=== PATIENT | male | born 1985 | race Caucasian/White ===

== ENCOUNTER 2024-10-28 14:34 | Outpatient (CLI) | payer MEDICARE, MEDICAID, SELFPAY ==
[2024-10-28 16:56] LABS: Absolute Lymphocyte Count 1.81 X10^3/uL (0.83-4.51); Absolute Neutrophil Count 1.9 X10^3/uL (2.0-7.7); Basophil# 0.05 X10^3/uL; Basophil% 1.1 % (0-1); Eosinophil# 0.14 X10^3/uL; Eosinophils% 3.1 % (0-5); Hematocrit 42.1 % (40-54); Hemoglobin 14.2 g/dL (13.0-16.5); Lymphocyte # 1.81 X10^3/ul (0.83-4.51); Lymphocyte % 39.5 % (19-41); Mean Corp Hgb Conc 33.7 g/dL (32-36); Mean Corpuscular Hgb 30.3 pg (27.0-32.0); Mean Platelet Vol. 12.8 fl (6.2-12.0); Monocyte# 0.64 X10^3/uL; NRBC Flagged by Analyzer 0 % (0-5); Neutrophil # 1.93 X10^3/uL (2.7-7.7); Neutrophil % 42.1 % (47-70); Platelet Count 260 K/mm3 (150-450); RBC Distribution Width CV 11.7 % (11.6-14.6); RBC Distribution Width SD 38.3 fl (35.1-43.9); Red Blood Count 4.68 M/mm3 (4.6-6.2); White Blood Count 4.6 K/mm3 (4.4-11.0)
== END 2024-10-28 23:59 | disposition home or self-care (01) ==
PROVIDERS: PCP Family Medicine; Referring Provider Internal Medicine; Visit Provider Internal Medicine
DX: F41.9 Anxiety disorder, unspecified (principal); F84.0 Autistic disorder
CPT/HCPCS: 85025

== ENCOUNTER 2024-12-13 14:36 | Emergency (ER) | payer MEDICARE, MEDICAID, SELFPAY ==
[2024-12-13 14:38] VITALS: BP 178/150; PULSE 113; RESP 18; TEMP 39.4; O2SAT 92
[2024-12-13 14:41] VITALS: BP 178/150; PULSE 113; RESP 19; TEMP 39.4; O2SAT 92
--- NOTE | 2024-12-13 14:51 | EX.ED.DYSGE1 ---
HPI History of Present Illness Chief Complaint: Fever Informant: mental health staff Narrative Narrative: 39-year-old male from longterm presenting to the emergency room with persistent fever. It has been reported to me based on the paperwork that accompanies him that he tested positive for influenza A on 03 December of this year. Reportedly has had persistent fever. It was noted that he has continued cough. He was taken to urgent care. Was noted that he had a pulse ox between 92 to 93%. Fever of up to 105 has been reported to me. They do not have report that is received any Tylenol or Motrin today. I reviewed his medications on the paperwork that accompanies him and see that he is on valproic acid. Caregiver that is with him states that she was told he has not had vomiting or diarrhea that he has been eating and drinking. PFSH PFSH Medical History no medical history Home Medications ?Medication ?Instructions ?Recorded ?Last Taken ?Type acetaminophen 500 mg capsule 1,000 mg (2 x 500 mg) PO Q6H PRN 12/13/24 Unknown Rx fever #20 caps amoxicillin 875 mg-potassium 875 mg PO Q12H #20 TABLETS 12/13/24 Unknown Rx clavulanate 125 mg tablet Allergy/AdvReac Type Severity Reaction Status Date / Time No Known Allergies Allergy Verified 12/13/24 14:37 Family History no significant family his Surgical History no surgical history Social History Smoking Status: Never smoker ROS ROS ED Review of Systems ROS Unobtainable: other Details: Limited due to patient's ability to communicate and lack of staff knowledge Constitutional Constitutional ED: Reports fever(s) Respiratory/Chest Respiratory/Chest: Reports cough Gastrointestinal Gastrointestinal: Denies diarrhea, nausea or vomiting EXAM Physical Exam Narrative Exam Narrative: 39-year-old male sitting comfortably in the bed. He has headphones on. He does participate in the exam. Const Vital Signs: 12/13/24 14:38 12/13/24 14:41 12/13/24 15:20 Temperature 103 F H 103 F H Temperature Source Oral Oral Pulse Rate 113 H 113 H Respiratory Rate 18 19 H Respiratory Effort Normal Non-Labored Respiratory Pattern Normal Blood Pressure 178/150 H 178/150 H Blood Pressure Mean 159 159 Pulse Ox 92 92 Oxygen Delivery Method Room Air Room Air 12/13/24 15:41 12/13/24 16:00 12/13/24 16:36 Temperature 98.9 F 98.9 F Temperature Source Oral Oral Pulse Rate 99 96 96 Respiratory Rate 18 18 Respiratory Effort Respiratory Pattern Blood Pressure 122/57 H 105/39 L 105/39 L Blood Pressure Mean 78 61 61 Pulse Ox 99 99 Oxygen Delivery Method Room Air Room Air 12/13/24 16:58 Temperature 98 F Temperature Source Pulse Rate 89 Respiratory Rate 16 Respiratory Effort Respiratory Pattern Blood Pressure 105/98 H Blood Pressure Mean 100 Pulse Ox 99 Oxygen Delivery Method Positive well nourished and well developed General Appearance ED: well developed HEENT Reports normocephalic, head/scalp atraumatic, TM's clear and moist mucous membranes HEENT Narrative: I do not appreciate any oropharyngeal erythema. Tympanic membranes appear normal. Tympanic Membrane ED: Yes TM's clear Eyes PERRL and EOMs intact bilaterally Neck no lymphadenopathy, supple and no JVD Resp normal respiratory effort and clear to auscultation bilaterally Resp Narrative: Moist rhonchorous cough Cardio regular rate, regular rhythm and no murmurs Rate: tachycardic GI normal to inspection, nondistended, normoactive bowel sounds and non-tender Palpation: soft Back/Spine no CVA tenderness and normal ROM Extremity normal to inspection General Extremety ED: Negative for edema General Extremity: Negative for edema Neuro CN's II-XII intact bilaterally Sensorium / Orientation: alert Motor Exam: strength 5/5 throughout Psych Attitude: No agitated Mood & Affect: Negative for tearful Skin no rashes or lesions noted and no wounds MDM MDM MDM Narrative Medical decision making narrative: Differential diagnosis includes but not limited to pneumonia bronchitis pleural effusion pneumothorax sepsis dehydration electrolyte abnormalities acute kidney injury Basic blood work was obtained shows white count 16.4 hemoglobin 12.7 platelet count of 337. Sodium is 131 glucose of 107 lactic acid is normal at 1.8 normal LFTs valproic acid is 81. My independent interpretation have a chest x-ray 2 view is retrocardiac infiltrate seen best on the lateral view posteriorly. Patient clinically appears well. After a gram of Tylenol and some IV fluids (patient dislodged his IV while in radiology) patient is now afebrile heart rate is now 96 respirations are easy nonlabored at 18 and his pulse ox is 99. Believe the patient can be discharged home. Melia start him on his [place]. I will also write for Tylenol so he can have fever control. Continued oral hydration and to follow-up with PCP 3 to 5 days. History & Record Review Discussion w/independent historian: Patient Lab Data Attestation: I reviewed the patient's lab results. Labs: Laboratory Results - last 24 hr 12/13/24 15:10 WBC 16.4 H RBC 4.18 L Hgb 12.7 L Hct 36.1 L MCV 86.4 MCH 30.4 MCHC 35.2 RDW Std Deviation 37.2 RDW Coeff of Kadi 11.8 Plt Count 337 MPV 10.5 Immature Gran % (Auto) 0.500 Neut % (Auto) 77.0 H Lymph % (Auto) 4.8 L Coryell % (Auto) 17.5 H Eos % (Auto) 0.0 Baso % (Auto) 0.2 Absolute Neuts (auto) 12.6 H Absolute Lymphs (auto) 0.79 L Nucleated RBC % 0 Differential Comment SEE COMMENT Diff Path Review May foll Platelet Estimate A RBC Morphology NORM C+C Anisocytosis RARE Macrocytosis RARE Ovalocytes RARE Sodium 131 L Potassium 4.5 Chloride 98 Carbon Dioxide 20.8 L Anion Gap 12 BUN 10 Creatinine 0.91 Estim Creat Clear Calc 118.23 Est GFR (MDRD) Non-Af 111 BUN/Creatinine Ratio 10.5 Glucose 107 H Lactic Acid 1.8 Calcium 9.7 Total Bilirubin 0.61 Direct Bilirubin 0.13 AST 21 ALT 8 Alkaline Phosphatase 70 Total Protein 7.2 Albumin 3.6 Globulin 3.6 Valproic Acid 81 Radiography Diagnostic Testing: Clinical Impression(s) from Imaging Studies Chest X-Ray 12/13/24 15:30 IMPRESSION: NEGATIVE CHEST Reading Location: [facility] Discharge Plan Triage Chief Complaint: Fever ED Provider: Dayton Salinas Dx/Rx/DC Orders Clinical Impression: Pneumonia, Hyponatremia, Fever Instructions: ED Pneumonia (Adult) Prescriptions: New amoxicillin-pot clavulanate 875-125 mg tablet 875 mg PO Q12H Qty: 20 0RF acetaminophen 500 mg capsule 1,000 mg PO Q6H PRN (Reason: fever) Qty: 20 0RF Primary Care Provider: Julius Sanches Referrals: Jose Avila MD [Non-Staff] - 3-5 Days Print Language: Citizen Of [place] Disposition Disposition: Home, Self Care Discharge Date/Time: 12/13/24 16:59
[2024-12-13] MEDS: 0.9% Normal Saline (1000mL) 1,000 ML 1000 ML IV (15:16)
[2024-12-13] MEDS: Acetaminophen 500 MG Tablet 1000 MG PO (15:16)
[2024-12-13 15:19] VITALS: BMI 22.9
[2024-12-13 15:19] LABS: Absolute Lymphocyte Count 0.79 X10^3/uL (0.83-4.51); Absolute Neutrophil Count 12.6 X10^3/uL (2.0-7.7); Basophil# 0.04 X10^3/uL; Basophil% 0.2 % (0-1); Hematocrit 36.1 % (40-54); Hemoglobin 12.7 g/dL (13.0-16.5); Lymphocyte # 0.79 X10^3/ul (0.83-4.51); Lymphocyte % 4.8 % (19-41); Mean Corp Hgb Conc 35.2 g/dL (32-36); Mean Corpuscular Hgb 30.4 pg (27.0-32.0); Mean Corpuscular Volume 86.4 fL (80-94); Mean Platelet Vol. 10.5 fl (6.2-12.0); Monocyte# 2.88 X10^3/uL; Monocyte% 17.5 % (0-10); NRBC Flagged by Analyzer 0 % (0-5); Neutrophil # 12.64 X10^3/uL (2.7-7.7); POSITIVE DIFFERENTIAL YES; Platelet Count 337 K/mm3 (150-450); RBC Distribution Width CV 11.8 % (11.6-14.6); RBC Distribution Width SD 37.2 fl (35.1-43.9); Red Blood Count 4.18 M/mm3 (4.6-6.2); White Blood Count 16.4 K/mm3 (4.4-11.0)
--- NOTE | 2024-12-13 15:30 | RAD_ITS ---
PROCEDURE: CHEST PA AND LATERAL 12/13/2024 REASON FOR EXAM: COUGH TECHNIQUE: Frontal and lateral views of the chest. COMPARISON: None. FINDINGS: Hardware: None. Heart: The heart size is normal. Mediastinum: The mediastinal contour is unremarkable. Lungs: No focal consolidation, pleural effusion or pneumothorax. Bones: The bones are unremarkable. RAD/Chest PA and Lateral IMPRESSION: NEGATIVE CHEST Reading Location: [id number]
[2024-12-13 15:41] VITALS: BP 122/57; PULSE 99; RESP 18; TEMP 37.2; O2SAT 99
[2024-12-13 15:47] LABS: Lactic Acid 1.8 mmol/L (0.0-2.0)
[2024-12-13 16:00] VITALS: BP 105/39; PULSE 96; RESP 18; TEMP 37.2; O2SAT 99
[2024-12-13 16:14] LABS: AST(SGOT) 21 U/L (<=37); Alanine Aminotransfer ALT/SGPT 8 U/L (<=46); Albumin, Serum 3.6 g/dL (3.5-5.0); Alkaline Phosphatase 70 U/L (40-129); Anion Gap 12 (5-15); BUN 10 mg/dL (4-19); BUN/Creat Ratio 10.5 RATIO (10-20); Bilirubin, Direct 0.13 mg/dL (0.00-0.30); Calcium,Total 9.7 mg/dL (7.6-11.0); Carbon Dioxide 20.8 mmol/L (21.0-32.0); Chloride 98 mmol/L (98-108); Creatinine, Serum 0.91 mg/dL (0.70-1.20); EST Glomerular Filtration Rate 111 (>60); Estimated Creatinine Clearance 118.23 ml/min (50-250); Globulin 3.6 g/dL (2.2-4.2); Glucose 107 mg/dL (70-99); Potassium 4.5 mmol/L (3.3-5.1); Protein, Total 7.2 g/dL (5.9-8.4); Sodium Level 131 mmol/L (133-145); Total Bilirubin 0.61 mg/dL (0.00-1.30)
[2024-12-13 16:16] LABS: Differential Indicated SCAN CRITERIA MET
[2024-12-13 16:30] LABS: Anisocytosis RARE; Macrocytosis RARE; Ovalocyte RARE; Pathologist Review May foll; Platelet Estimate A (ADEQ); Red Cell Morphology NORM C+C NORMAL (NORM C&C)
[2024-12-13 16:36] VITALS: BP 105/39; PULSE 96
[2024-12-13 16:40] LABS: Valproic Acid (Depakene) Level 81 ug/mL (50-100)
[2024-12-13 16:58] VITALS: BP 105/98; PULSE 89; RESP 16; TEMP 36.6; O2SAT 99
--- NOTE | 2024-12-13 17:03 | ED.RN ---
Attempted to call legal guardian for permission to treat. No answer.
== END 2024-12-13 16:59 | disposition home or self-care (01) ==
PROVIDERS: Emergency Provider Emergency Medicine; Visit Provider Emergency Medicine
DX: J18.9 Pneumonia, unspecified organism (principal); R50.9 Fever, unspecified; E87.1 Hypo-osmolality and hyponatremia
CPT/HCPCS: 71046; 80048; 80076; 80164; 83605; 85025; 87040; 87631; 96360; 96361; 99282; A4216